=== PATIENT | male | born 1955 | race Two or more races ===

== ENCOUNTER 2017-11-21 16:04 | Inpatient (IN) | payer MEDICAID, OTHER ==
[~2017-11-21] VITALS: Ht 162.6 cm; Wt 48.7 kg
[2017-11-21 17:00] LABS: Urine Bacteria FEW /hpf (None Seen); Urine Blood 1+ /uL (Negative); Urine Mucus FEW (None Seen); Urine Specific Gravity 1.021 (1.001-1.035); Urine WBC 1 /hpf (0 - 3)
[2017-11-21 17:21] LABS: Basophils # (auto) 0 uL; Eosinophils # (auto) 0 uL; Eosinophils % (auto) 0.1 % (0.0-7.0); Hemoglobin 11.7 g/dL (13.5-17.5); Red Blood Cells 4.24 10^6/uL (4.5-5.90)
[2017-11-21 17:23] LABS: Basophils % (auto) 0.1 % (0.0-2.0); Hematocrit 34.4 % (41.0-53.0); Lymphocytes # (auto) 0.8 uL; Lymphocytes % (auto) 5.2 % (10.0-50.0); Mean Corpuscular Hemoglobin 27.5 pg (28.0-32.0); Mean Corpuscular Hgb Conc. 33.8 g/dL (32.0-36.0); Mean Corpuscular Volume 81.2 fL (80.0-100.0); Monocytes # (auto) 1.6 uL; Monocytes % (auto) 10.1 % (0.0-12.0); Neutrophils # (auto) 13.5 uL; Neutrophils % (auto) 84.5 % (37.0-80.0); Platelet Count (auto) 572 10^3/uL (140-450); Red Cell Distribution Width 14.8 % (11.8-14.3)
[2017-11-21 17:32] LABS: Albumin 2.4 g/dL (3.4-5.0); Amylase 38 U/L (25-115); Anion Gap 12 (5-15); BUN/Creatinine Ratio 21.4; Blood Urea Nitrogen 9 mg/dL (7-18); Calcium 8.1 mg/dL (8.5-10.1); Carbon Dioxide 22 mmol/L (21-32); Chloride 86 mmol/L (98-107); GFR African American 266 mL/min; GFR Non-African American 220 mL/min; Glucose 116 mg/dL (74-106); Potassium 3.4 mmol/L (3.5-5.1); Sodium 120 mmol/L (136-145)
[2017-11-21 17:37] LABS: Alanine Aminotransferase 105 U/L (16-61); Alkaline Phosphatase 119 U/L (45-117); Aspartate Aminotransferase 86 U/L (15-37); Bilirubin, Total 1.1 mg/dL (0.2-1.0); Total Protein 7.9 g/dL (6.4-8.2)
[2017-11-21] MEDS ORDERED: cefTRIAXone 1GM/10ml IVPUSH 10 ML IV ONE (22:30)
[2017-11-21] MEDS ORDERED: SODIUM CHLORIDE 0.9% 1,000 ML IV ONE (22:30)
[2017-11-21] MEDS ORDERED: metroNIDAZOLE 500MG/100ML 100 ML IV ONE (22:30)
[2017-11-21 22:54] LABS: Alcohol, Urine < 3.0 mg/dL (0-5); Amphetamine Screen, Urine NEGATIVE (NEGATIVE); Barbiturate Scree,Urine NEGATIVE (NEGATIVE); Benzodiazephine Screen, Urine NEGATIVE (NEGATIVE); Cannabinoid Screen, Urine NEGATIVE (NEGATIVE); Cocaine Screen, Urine NEGATIVE (NEGATIVE); Opiate Scree,Urine NEGATIVE (NEGATIVE); Phencyclidine Screen, Urine NEGATIVE (NEGATIVE)
[2017-11-22] MEDS ORDERED: ACETAMINOPHEN 500 MG TAB PO PRN (06:45)
[2017-11-22] MEDS ORDERED: ONDANSETRON HCL 4 MG/2 ML VIAL IV PRN (06:45)
[2017-11-22] MEDS: cefTRIAXone 1GM/10ml IVPUSH 10 ML IV SCH (09:00)
[2017-11-22] MEDS: LISINOPRIL 10 MG TAB PO SCH (09:46)
[2017-11-22] MEDS: AZITHROMYCIN 500MG/ 250ML 250 ML IV SCH (09:46)
[2017-11-22 10:26] LABS: Basophils # (auto) 0.1 uL; Eosinophils # (auto) 0 uL; Lymphocytes # (auto) 1.1 uL; Monocytes # (auto) 1.4 uL; Neutrophils # (auto) 15.5 uL
[2017-11-22 10:27] LABS: Basophils % (auto) 0.3 % (0.0-2.0); Eosinophils % (auto) 0.1 % (0.0-7.0); Hematocrit 39.6 % (41.0-53.0); Hemoglobin 13.5 g/dL (13.5-17.5); Lymphocytes % (auto) 5.9 % (10.0-50.0); Mean Corpuscular Hemoglobin 28.1 pg (28.0-32.0); Mean Corpuscular Hgb Conc. 34.2 g/dL (32.0-36.0); Monocytes % (auto) 7.7 % (0.0-12.0); Platelet Count (auto) 636 10^3/uL (140-450); Red Blood Cells 4.82 10^6/uL (4.5-5.90); Red Cell Distribution Width 14.8 % (11.8-14.3)
[2017-11-22 10:47] LABS: Albumin 2.2 g/dL (3.4-5.0); Bilirubin, Total 0.8 mg/dL (0.2-1.0); Calcium 8.1 mg/dL (8.5-10.1); Potassium 3.5 mmol/L (3.5-5.1)
[2017-11-22] MEDS: HYDROcodone-ACET 5/325MG TAB PO PRN ×2 (12:12→22:22)
[2017-11-22 14:43] VITALS: BP 163/75
[2017-11-22 16:26] VITALS: BP 153/75
[2017-11-22] MEDS: SODIUM CHLORIDE 1 GM TAB PO SCH ×2 (16:35→22:21)
[2017-11-22 16:42] VITALS: BP 163/75
[2017-11-22 22:00] VITALS: BP 162/79
[2017-11-22] MEDS: TEMAZEPAM 15 MG CAP PO PRN (22:22)
[2017-11-23 05:00] VITALS: BP 98/52
[2017-11-23 09:00] VITALS: BP 110/63
[2017-11-23] MEDS: cefTRIAXone 1GM/10ml IVPUSH 10 ML IV SCH (10:14)
[2017-11-23] MEDS: AZITHROMYCIN 500MG/ 250ML 250 ML IV SCH (10:14)
[2017-11-23] MEDS: LISINOPRIL 10 MG TAB PO SCH (10:14)
[2017-11-23] MEDS: SODIUM CHLORIDE 1 GM TAB PO SCH ×2 (10:26→21:55)
[2017-11-23 11:05] LABS: Basophils # (auto) 0 uL; Eosinophils # (auto) 0 uL; Eosinophils % (auto) 0.2 % (0.0-7.0); Lymphocytes # (auto) 0.7 uL; Monocytes # (auto) 1.3 uL; Monocytes % (auto) 9.3 % (0.0-12.0)
[2017-11-23 11:06] LABS: Basophils % (auto) 0.1 % (0.0-2.0); Hematocrit 35.5 % (41.0-53.0); Lymphocytes % (auto) 5.2 % (10.0-50.0); Mean Corpuscular Hemoglobin 27.6 pg (28.0-32.0); Mean Corpuscular Hgb Conc. 33.9 g/dL (32.0-36.0); Mean Corpuscular Volume 81.5 fL (80.0-100.0); Neutrophils % (auto) 85.2 % (37.0-80.0); Platelet Count (auto) 645 10^3/uL (140-450); Red Blood Cells 4.36 10^6/uL (4.5-5.90); Red Cell Distribution Width 14.7 % (11.8-14.3); White Blood Cell 14.1 10^3/uL (4.4-10.8)
[2017-11-23 11:28] LABS: BUN/Creatinine Ratio 16.3; Bilirubin, Total 0.5 mg/dL (0.2-1.0); Calcium 7.9 mg/dL (8.5-10.1); Potassium 3.2 mmol/L (3.5-5.1)
[2017-11-23 13:00] VITALS: BP 115/62
[2017-11-23 16:59] VITALS: BP 118/72
[2017-11-23] MEDS: TEMAZEPAM 15 MG CAP PO PRN (21:56)
[2017-11-23] MEDS: HYDROcodone-ACET 5/325MG TAB PO PRN (21:56)
[2017-11-24 05:16] VITALS: BP 114/71
[2017-11-24 05:51] LABS: Basophils # (auto) 0 uL; Basophils % (auto) 0.4 % (0.0-2.0); Eosinophils # (auto) 0.1 uL; Eosinophils % (auto) 0.8 % (0.0-7.0); Hematocrit 32.1 % (41.0-53.0); Hemoglobin 10.7 g/dL (13.5-17.5); Lymphocytes # (auto) 1.1 uL; Mean Corpuscular Hemoglobin 27.4 pg (28.0-32.0); Mean Corpuscular Hgb Conc. 33.3 g/dL (32.0-36.0); Mean Corpuscular Volume 82.2 fL (80.0-100.0); Monocytes # (auto) 1.4 uL; Neutrophils # (auto) 8.8 uL; Neutrophils % (auto) 76.8 % (37.0-80.0); Platelet Count (auto) 573 10^3/uL (140-450); Red Blood Cells 3.91 10^6/uL (4.5-5.90); Red Cell Distribution Width 14.8 % (11.8-14.3); White Blood Cell 11.4 10^3/uL (4.4-10.8)
[2017-11-24 06:20] LABS: Albumin 1.9 g/dL (3.4-5.0); BUN/Creatinine Ratio 17.1; Bilirubin, Total 0.5 mg/dL (0.2-1.0); Calcium 7.7 mg/dL (8.5-10.1); Potassium 3.6 mmol/L (3.5-5.1); Total Protein 6.3 g/dL (6.4-8.2)
[2017-11-24 09:00] VITALS: BP 100/56
[2017-11-24] MEDS: cefTRIAXone 1GM/10ml IVPUSH 10 ML IV SCH (09:32)
[2017-11-24] MEDS: LISINOPRIL 10 MG TAB PO SCH (09:32)
[2017-11-24] MEDS: AZITHROMYCIN 500MG/ 250ML 250 ML IV SCH (09:32)
[2017-11-24 13:00] VITALS: BP 107/66
[2017-11-24] MEDS ORDERED: SODC1T PO ×2 (13:05→13:06)
[2017-11-24] MEDS ORDERED: LEVO500T21 PO ×2 (13:05→13:06)
== END 2017-11-24 19:09 | disposition home or self-care (01) | DRG 720 ==
LOC: ER 16:10 → TELE 16:11 → TELE-WESTW 11-22 13:59
PROVIDERS: ADMIT Nurse Practitioner Family; ATTEND Internal Medicine
DX: A41.9 Sepsis, unspecified organism (principal); J15.9 Unspecified bacterial pneumonia; E22.2 Syndrome of inappropriate secretion of antidiuretic hormone; K70.9 Alcoholic liver disease, unspecified; K56.7 Ileus, unspecified; E87.6 Hypokalemia; F17.210 Nicotine dependence, cigarettes, uncomplicated; J21.9 Acute bronchiolitis, unspecified; K44.9 Diaphragmatic hernia without obstruction or gangrene; R74.0 Nonspecific elevation of levels of transaminase and lactic acid dehydrogenase [LDH]
CPT/HCPCS: 36415; 74176; 80053; 80307; 81001; 82150; 83605; 83690; 83880; 84484; 85025; 87040; 87400; 93005; 96361; 96365; 96375; J3490

== ENCOUNTER 2019-05-31 16:05 | Emergency (ER) | payer SELFPAY ==
[~2019-05-31] VITALS: Ht 165.1 cm; Wt 49.9 kg
[~2019-05-31 16:05] MED LIST: LEVO500T21 PO; SODC1T PO
[2019-05-31 18:19] VITALS: BP 122/69
[2019-05-31 18:41] LABS: Basophils # (auto) 0.1 uL; Basophils % (auto) 0.5 % (0.0-2.0); Eosinophils # (auto) 0.1 uL; Eosinophils % (auto) 0.6 % (0.0-7.0); Hematocrit 46.6 % (41.0-53.0); Hemoglobin 15.5 g/dL (13.5-17.5); Lymphocytes # (auto) 1.6 uL; Lymphocytes % (auto) 9.7 % (10.0-50.0); Mean Corpuscular Hemoglobin 29.9 pg (28.0-32.0); Mean Corpuscular Hgb Conc. 33.3 g/dL (32.0-36.0); Mean Corpuscular Volume 89.7 fL (80.0-100.0); Monocytes # (auto) 0.7 uL; Monocytes % (auto) 4.3 % (0.0-12.0); Neutrophils # (auto) 13.7 uL; Neutrophils % (auto) 84.9 % (37.0-80.0); Nucleated Red Blood Cells % 0.1 %; Platelet Count (auto) 396 10^3/uL (140-450); Red Blood Cells 5.19 10^6/uL (4.5-5.90); Red Cell Distribution Width 17.3 % (11.8-14.3); White Blood Cell 16.2 10^3/uL (4.4-10.8)
[2019-05-31 18:57] LABS: Albumin 3.4 g/dL (3.4-5.0); BUN/Creatinine Ratio 9.6; Calcium 8.1 mg/dL (8.5-10.1); Potassium 4.2 mmol/L (3.5-5.1)
[2019-05-31 19:00] LABS: Bilirubin, Total 0.4 mg/dL (0.2-1.0)
[2019-05-31 19:01] LABS: INR < 0.93 (0.9-1.15); Partial Thromboplastin Time 27.6 sec (23.64-32.05)
== END 2019-05-31 18:41 | disposition home or self-care (01) ==
LOC: ER 16:09
DX: S06.309A Unspecified focal traumatic brain injury with loss of consciousness of unspecified duration, initial encounter (principal); F17.210 Nicotine dependence, cigarettes, uncomplicated; V86.55XA Driver of 3- or 4- wheeled all-terrain vehicle (ATV) injured in nontraffic accident, initial encounter; Y93.89 Activity, other specified; Y99.8 Other external cause status; Y92.89 Other specified places as the place of occurrence of the external cause
CPT/HCPCS: 36415; 70450; 73030; 80053; 85025; 85610; 85730; 99291